=== PATIENT | male | born 1950 | race African-American/Black ===

== ENCOUNTER 2025-08-19 09:49 | Emergency (ER) | payer MEDICARE, OTHER ==
[~2025-08-19] VITALS: Ht 182.9 cm; Wt 77.0 kg
[2025-08-19 09:54] VITALS: O2SAT 99
[2025-08-19] MEDS: ASPIRIN 325MG TABLET PO ONE (11:25)
[2025-08-19 12:06] LABS: HEMATOCRIT. 46.8 % (42.0-52.0); HEMOGLOBIN. 15.1 g/dL (14.0-18.0); MEAN PLATELET VOLUME 8.8 fl (7.4-10.4); PLATELET 198 x1000/uL (130-400); RED BLOOD CELL COUNT 5.59 mill/uL (4.7-6.1); RED CELL DISTRIBUTION WIDTH 16.4 % (11.6-14.6)
[2025-08-19 12:19] LABS: CREATININE 1.3 mg/dL (0.6-1.3); UREA NITROGEN BLOOD 7 mg/dL (9-23)
[2025-08-19 12:21] LABS: TROPONIN I HIGH SENSITIVITY < 4 ng/L (3.0-53)
[2025-08-19] MEDS: LIDOCAINE 5% PATCH TOP SCH (12:24)
[2025-08-19] MEDS: SODIUM CHLORIDE 0.9% 1,000 ML IV ONE (12:26)
[2025-08-19 13:13] LABS: BAND% 44.0 % (1.0-6.0); LYMPHOCYTES % MANUAL 8.0 % (20.0-50.0); METAMYELOCYTES % 1.0 % (0-0); NEUTROPHILS % MANUAL 47.0 % (45.0-75.0); PLATELET ESTIMATE NORMAL
[2025-08-19 14:21] VITALS: BP 152/77; PULSE 93; RESP 22; TEMP 36.8; O2SAT 99
[2025-08-19] MEDS: ACETAMINOPHEN 325MG TABLET PO ONE (15:24)
[2025-08-19] MEDS: METHOCARBAMOL 750MG TABLET PO SCH (15:43)
[2025-08-19 16:24] LABS: TROPONIN I HIGH SENSITIVITY 4 ng/L (3.0-53)
[2025-08-19] MEDS ORDERED: LIDO1ADH71 TOP (17:24)
[2025-08-19] MEDS ORDERED: METH-653 GT (17:26)
[2025-08-19] MEDS ORDERED: IOHEXOL-350 100 ML BOTTLE ONE (19:19)
[2025-08-20] MEDS ORDERED: LIDOCAINE 5% PATCH TOP SCH (09:00)
== END 2025-08-19 11:17 | disposition home or self-care (01) ==
LOC: ER 09:49 → CANBEDREQ 17:40
DX: R55 Syncope and collapse (principal); R07.9 Chest pain, unspecified; I25.10 Atherosclerotic heart disease of native coronary artery without angina pectoris; I50.9 Heart failure, unspecified
CPT/HCPCS: 99285; 74174; 96360; 71275; 71045; 80048; 83735; 85025; 85379; 84484; 93005; 36415; Q9967; J7030; A4606